=== PATIENT | male | born 1940 | race Caucasian/White ===

== ENCOUNTER 2020-08-28 17:51 | Day surgery (SDC) | payer MEDICARE ==
[~2020-08-28] VITALS: Ht 170.2 cm; Wt 80.0 kg
[~2020-08-28 17:51] MED LIST: CIPROFLOXACIN250 MG PO; DILAUDID 2MG2 MG/TAB PO; LORTAB 5-325 MG1 TAB PO; TORADOL PO; ZOFRAN ODT4 MG SL
[2020-08-28] MEDS ORDERED: NORVASC5 M1 PO (20:26)
[2020-08-28] MEDS ORDERED: CARVEDILOL3.125 MG PO (20:27)
[2020-08-28] MEDS ORDERED: ASPIRIN 81 LOW81 MG (20:28)
[2020-08-28 21:35] LABS: ALBUMIN 5.1 g/dL (3.2-5.0); BILIRUBIN, TOTAL 1.4 mg/dL (0.0-1.4); CREATININE 1.4 mg/dL (0.7-1.3); POTASSIUM 3.7 mmol/l (3.5-5.1); TOTAL PROTEIN 8.6 g/dL (6.3-8.2)
[2020-08-28 21:42] LABS: HEMATOCRIT 44.4 % (39.0-50.0); HEMOGLOBIN 14.7 g/dl (14.0-18.0); IMMATURE GRANULOCYTES 0.6 % (0.0-5.0); MEAN CELL VOLUME 91.2 fL CALC (80.0-100.0); MEAN CORPUSCULAR HGB 30.2 pG CALC (26.0-32.0); MEAN CORPUSCULAR HGB CONC 33.1 g/dL CAL (32.0-36.0); NEUT# 7.78 thou/uL (1.82-7.42); RED BLOOD COUNT 4.87 mill/uL (4.70-6.10); RED CELL DISTRI WIDTH 12.8 % (11.5-15.5)
[2020-08-28 23:22] VITALS: BP 123/61
== END 2020-08-28 23:29 | disposition home or self-care (01) ==
LOC: ED 17:51 → ORM 22:10
PROVIDERS: Family Medicine; ATTEND Surgery
PROC: 0DC38ZZ Extirpation of Matter from Lower Esophagus, Via Natural or Artificial Opening Endoscopic (ICD-10-PCS; principal; 2020-08-28)
DX: T18.128A Food in esophagus causing other injury, initial encounter (principal); K44.9 Diaphragmatic hernia without obstruction or gangrene; K22.10 Ulcer of esophagus without bleeding; I10 Essential (primary) hypertension; E11.9 Type 2 diabetes mellitus without complications; X58.XXXA Exposure to other specified factors, initial encounter; Z20.822 Contact with and (suspected) exposure to COVID-19
CPT/HCPCS: J1610

== ENCOUNTER 2023-01-09 07:50 | Day surgery (SDC) | payer MEDICARE ==
[~2023-01-09] VITALS: Ht 170.2 cm; Wt 70.3 kg
[2023-01-09] VITALS (21 sets, daily range): BP systolic 108–189; BP diastolic 58–113
[~2023-01-09 07:50] MED LIST changes: +ASPIRIN 81 LOW81 MG; +CARVEDILOL3.125 MG PO; +NORVASC5 M1 PO
[2023-01-09 09:00] LABS: BASO% 0.9 % (0-3); EOS% 2.4 % (0-8); HEMATOCRIT 42.2 % (39.0-50.0); HEMOGLOBIN 14.1 g/dl (14.0-18.0); IMMATURE GRANULOCYTES 0.4 % (0.0-5.0); MEAN CORPUSCULAR HGB 31.1 pG CALC (26.0-32.0); MEAN CORPUSCULAR HGB CONC 33.4 g/dL CAL (32.0-36.0); MONO% 9.3 % (2-13); NEUT# 2.89 thou/uL (1.82-7.42); RED BLOOD COUNT 4.54 mill/uL (4.70-6.10)
[2023-01-09 09:05] LABS: ALBUMIN 4.2 g/dL (3.2-5.0); ALKALINE PHOSPHATASE 56 u/l (38-126); ANION GAP 11 (6-22 (CALC)); BILIRUBIN, TOTAL 1.3 mg/dL (0.2-1.3); BUN 24 mg/dL (8-23); BUN/CREATININE RATIO 18 (12-20 (CALC)); CARBON DIOXIDE 29 mmol/l (22-30); CHLORIDE 106 mmol/l (95-108); CREATININE 1.3 mg/dL (0.7-1.3); GFR FOR AFR.AMER. > 60 ML/MIN (>=60 (CALC)); GFR OTHER RACES 53 ML/MIN (>=60 (CALC)); POTASSIUM 3.9 mmol/l (3.5-5.1); SODIUM 142 mmol/l (137-146)
[2023-01-09 09:12] LABS: SGOT/AST 122 u/l (19-48)
[2023-01-09 09:50] LABS: AMYLASE 81 u/l (30-110); LIPASE 110 u/l (23-300)
== END 2023-01-09 16:15 | disposition home or self-care (01) ==
LOC: ED 07:50 → ORM 14:21
PROVIDERS: Family Medicine; ATTEND Surgery
PROC: 0DC48ZZ Extirpation of Matter from Esophagogastric Junction, Via Natural or Artificial Opening Endoscopic (ICD-10-PCS; principal; 2023-01-09)
PROC: 0DB48ZX Excision of Esophagogastric Junction, Via Natural or Artificial Opening Endoscopic, Diagnostic (ICD-10-PCS; 2023-01-09)
PROC: 0DB78ZX Excision of Stomach, Pylorus, Via Natural or Artificial Opening Endoscopic, Diagnostic (ICD-10-PCS; 2023-01-09)
PROC: 0D748ZZ Dilation of Esophagogastric Junction, Via Natural or Artificial Opening Endoscopic (ICD-10-PCS; 2023-01-09)
DX: T18.128A Food in esophagus causing other injury, initial encounter (principal); K22.2 Esophageal obstruction; K31.7 Polyp of stomach and duodenum; I10 Essential (primary) hypertension; E11.9 Type 2 diabetes mellitus without complications; X58.XXXA Exposure to other specified factors, initial encounter; Z20.822 Contact with and (suspected) exposure to COVID-19

== ENCOUNTER 2023-07-22 23:59 | Observation (INO) | payer MEDICARE ==
[~2023-07-22] VITALS: Ht 170.2 cm; Wt 73.0 kg
[2023-07-23 04:54] VITALS: BP 160/81
[2023-07-23 06:07] LABS: BASO% 0.5 % (0-3); EOS% 0.5 % (0-8); HEMATOCRIT 38.8 % (39.0-50.0); HEMOGLOBIN 13.2 g/dl (14.0-18.0); IMMATURE GRANULOCYTES 0.2 % (0.0-5.0); LYMPH% 13.7 % (15-41); MEAN CORPUSCULAR HGB 31.7 pG CALC (26.0-32.0); MONO% 8.6 % (2-13); NEUT# 4.8 thou/uL (1.82-7.42); NEUT% 76.5 % (42-76); RED BLOOD COUNT 4.17 mill/uL (4.70-6.10); RED CELL DISTRI WIDTH 12.7 % (11.5-15.5)
[2023-07-23 06:28] LABS: ANION GAP 10 (6-22 (CALC)); BUN 23 mg/dL (8-23); BUN/CREATININE RATIO 20 (12-20 (CALC)); CARBON DIOXIDE 28 mmol/l (22-30); CHLORIDE 106 mmol/l (95-108); CREATININE 1.2 mg/dL (0.7-1.3); GFR FOR AFR.AMER. > 60 ML/MIN (>=60 (CALC)); GFR OTHER RACES 58 ML/MIN (>=60 (CALC)); SODIUM 141 mmol/l (137-146)
[2023-07-23] MEDS ORDERED: PREVACID15 M1 PO (07:16)
[2023-07-23 08:03] VITALS: BP 157/81
== END 2023-07-23 12:31 | disposition home or self-care (01) ==
LOC: ED 23:59 → ED-I 07-23 02:06 → ED 07-23 02:20 → ICU 07-23 02:21
PROVIDERS: ADMIT Surgery; ATTEND Surgery
PROC: 0DC38ZZ Extirpation of Matter from Lower Esophagus, Via Natural or Artificial Opening Endoscopic (ICD-10-PCS; principal; 2023-07-23)
PROC: 0D748ZZ Dilation of Esophagogastric Junction, Via Natural or Artificial Opening Endoscopic (ICD-10-PCS; 2023-07-23)
DX: T18.128A Food in esophagus causing other injury, initial encounter (principal); K22.2 Esophageal obstruction; K44.9 Diaphragmatic hernia without obstruction or gangrene; I10 Essential (primary) hypertension; E11.9 Type 2 diabetes mellitus without complications; W44.F3XA Food entering into or through a natural orifice, initial encounter; Z20.822 Contact with and (suspected) exposure to COVID-19
CPT/HCPCS: J1610